=== PATIENT | female | born 1975 | race Caucasian/White ===

== ENCOUNTER → 2022-09-14 | Outpatient (CLI) | payer BC ==
[2022-09-14 15:46] LABS: BASOPHILS ABSOLUTE AUTO 0.05 K/mm3 (0.00-0.23); BASOPHILS PERCENT AUTO 1 % (0-2); EOSINOPHILS ABSOLUTE AUTO 0.19 K/mm3 (0.00-0.68); EOSINOPHILS PERCENT AUTO 3 % (0-6); Hemoglobin 15.5 g/dL (11.5-16.0); IMMATURE GRAN ABSOLUTE AUTO 0.02 K/mm3 (0.00-0.10); IMMATURE GRAN PERCENT AUTO 0 % (0-1); LYMPHOCYTES ABSOLUTE AUTO 1.79 K/mm3 (0.84-5.20); LYMPHOCYTES PERCENT AUTO 29 % (21-46); MONOCYTES ABSOLUTE AUTO 0.48 K/mm3 (0.16-1.47); MONOCYTES PERCENT AUTO 8 % (4-13); Mean Corpuscular HGB 32.4 pg (26.0-34.0); Mean Corpuscular HGB Conc 33.7 g/dL (31.5-36.5); Mean Corpuscular Volume 96 fL (80-100); Mean Platelet Volume 10.3 fL (9.1-12.4); NEUTROPHILS ABSOLUTE AUTO 3.66 K/mm3 (1.96-9.15); NEUTROPHILS PERCENT AUTO 59 % (41-73); Platelet Count 220 K/mm3 (150-400); RDW Coefficient Variation 12.4 % (11.7-14.2); RDW Standard Deviation 44.1 fL (35.1-46.3); Red Blood Cell Count 4.78 M/mm3 (3.80-5.20); White Blood Cell Count 6.19 K/mm3 (4.00-11.30)
== END | disposition home or self-care (01) ==
LOC: LAB 11:58 → LAB SHORT 11:58
PROVIDERS: Hospitalist
DX: M25.561 Pain in right knee (principal)
CPT/HCPCS: 84550; 85025; 85651

== ENCOUNTER → 2023-07-26 | Outpatient (CLI) | payer BC ==
[2023-07-26 19:32] LABS: Alanine Aminotransfer (ALT/SGP 73 U/L (12-78); Aspartate Aminotrans (AST/SGOT 43 U/L (12-37)
== END ==
LOC: LAB SHORT 18:15 → LAB 18:15
PROVIDERS: Hospitalist
DX: B35.1 Tinea unguium (principal)
CPT/HCPCS: 84450; 84460

== ENCOUNTER → 2024-05-01 | Outpatient (CLI) | payer BC ==
[2024-05-10 08:51] LABS: HPV HIGH RISK BY TMA Not Detected; HPV SOURCE Cervical
== END | disposition home or self-care (01) ==
LOC: LAB 11:51 → LAB SHORT 11:51
PROVIDERS: Advanced Practice Midwife
DX: Z01.419 Encounter for gynecological examination (general) (routine) without abnormal findings (principal)
CPT/HCPCS: 87624; G0123

== ENCOUNTER → 2024-05-07 | Outpatient (CLI) | payer BC ==
[2024-05-09 16:02] LABS: LYME VLSE1/PEPC10 ABS, ELISA 0.22 IV (<=0.90)
== END ==
LOC: LAB SHORT 12:00 → LAB 12:00
PROVIDERS: Hospitalist
DX: M25.50 Pain in unspecified joint (principal); W57.XXXD Bitten or stung by nonvenomous insect and other nonvenomous arthropods, subsequent encounter
CPT/HCPCS: 86618

== ENCOUNTER → 2024-05-07 | Outpatient (CLI) | payer BC | LOC: LAB 14:09 → LAB SHORT 14:09 | DX: D22.5 Melanocytic nevi of trunk (principal); D48.5 Neoplasm of uncertain behavior of skin | CPT/HCPCS: 88305 ==